=== PATIENT | female | born 1980 | race Caucasian/White ===

== ENCOUNTER → 2024-06-28 08:35 | Outpatient (REF) | payer OTHER, SELFPAY | LOC: WDC 08:35 | PROVIDERS: ATTENDING PHYSICIAN Obstetrics & Gynecology; FAMILY PHYSICIAN Family Medicine | DX: Z12.31 Encounter for screening mammogram for malignant neoplasm of breast (principal) | CPT/HCPCS: 77063; 77067 ==

== ENCOUNTER → 2024-09-27 13:55 | Outpatient (REF) | payer OTHER, SELFPAY | LOC: WDC 13:55 | PROVIDERS: ATTENDING PHYSICIAN Obstetrics & Gynecology | DX: R92.343 Mammographic extreme density, bilateral breasts (principal) | CPT/HCPCS: 76641 ==